=== PATIENT | male | born 1940 | race Caucasian/White ===

== ENCOUNTER → 2016-08-08 | Outpatient (CLI) | payer MEDICARE, OTHER ==
[~2016-08-08] MED LIST: ASPI-110 PO; BENF150C PO; FISH1000 PO; GLIP10TA6 PO; HYDR-3583 PO; LISI40TA PO; NIAC500T18 PO; PIOG30TA4 PO; PRAV20TA2 PO; SITA1TAB2 PO; fentaNYL CITRATE 250 MCG/5 ML AMP ONE
--- NOTE | 2016-08-08 14:10 | RADRPT ---
EXAM DATE/TIME: 08/08/2016 13:53 [facility] COMPARISON: CHEST PA & LAT, October 10, 2013, 10:50. INDICATIONS : Evaluate for pneumonia, pneumothorax or communicable disease. Pre op for cervical spine surgery . MEDICAL HISTORY : None. SURGICAL HISTORY : None. ENCOUNTER: Initial ACUITY: 1 day PAIN SCORE: 0/10 LOCATION: Bilateral chest FINDINGS: PA and lateral views of the chest demonstrate the lungs to be symmetrically aerated without evidence of mass, infiltrate or effusion. The cardiomediastinal contours are unremarkable. Osseous structure s are intact. CONCLUSION: No acute disease. Raciel Sigala MD on August 08, 2016 at 14:09 Board Certified Radiologist. This report was verified electronically.
== END ==
LOC: CPRE 12:18
PROVIDERS: ATTEND Neurological Surgery
DX: Z01.811 Encounter for preprocedural respiratory examination (principal); E11.65 Type 2 diabetes mellitus with hyperglycemia; Z79.01 Long term (current) use of anticoagulants
CPT/HCPCS: 71020; J3010

== ENCOUNTER 2016-08-09 05:42 | Observation (INO) | payer MEDICARE, OTHER ==
[~2016-08-09] VITALS: Ht 172.7 cm; Wt 100.7 kg
[~2016-08-09 05:42] MED LIST changes: -HYDR-3583 PO; -fentaNYL CITRATE 250 MCG/5 ML AMP ONE
[2016-08-09] MEDS ORDERED: METOPROLOL TARTRATE 25 MG TAB PO PRN (06:15)
[2016-08-09] MEDS ORDERED: INSULIN HUMAN REGULAR 1,000 UNITS/10 ML VIAL SQ PRN (06:15)
[2016-08-09 06:28] VITALS: BP 121/52; PULSE 79; RESP 18; TEMP 98.7; O2SAT 96
[2016-08-09] MEDS ORDERED: VANCOMYCIN HCL 1000 MG VIAL ONE (07:47)
[2016-08-09] MEDS ORDERED: MICROFIBRILLAR COLLAGEN HEMOSTAT 70 X 35 MM BANDAGE ONE (07:47)
[2016-08-09] MEDS ORDERED: ceFAZolin 2 GM PREMIX 50 ML ONE (07:48)
[2016-08-09] MEDS ORDERED: GELFOAM SIZE 100 ONE (07:48)
[2016-08-09] MEDS ORDERED: THROMBIN (TOPICAL) 5,000 UNIT VIAL ONE (07:48)
[2016-08-09] MEDS ORDERED: SODIUM CHLOR 0.9% 250 ML INJ 250 ML ONE (07:49)
[2016-08-09] MEDS ORDERED: GENTAMICIN SULFATE 80 MG/2 ML VIAL ONE (07:49)
[2016-08-09] MEDS ORDERED: FAMOTIDINE 20 MG/2 ML VIAL ONE (08:10)
[2016-08-09] MEDS ORDERED: ACETAMINOPHEN 1000 MG/100 ML VIAL IV ONE (08:10)
[2016-08-09] MEDS ORDERED: ARTIFICIAL TEARS OPTH OINT 3.5 APPLIC/3.5 GM TUBO ONE (08:10)
[2016-08-09] MEDS ORDERED: MIDAZOLAM HCL 2 MG/2 ML VIAL ONE (08:10)
[2016-08-09] MEDS ORDERED: fentaNYL CITRATE 250 MCG/5 ML AMP ONE (08:11)
[2016-08-09] MEDS ORDERED: SODIUM CHLORID 0.9% 500 ML IV SCH (08:30)
[2016-08-09] MEDS ORDERED: LACTATED RINGER'S 1000 ML IV SCH (08:30)
[2016-08-09] MEDS ORDERED: LACTATED RINGER'S 1000 ML INJ 2,000 ML IV ONE (12:18)
[2016-08-09] MEDS ORDERED: PHENYLEPH/NS 1000 MCG/10 ML SYR IV ONE (12:18)
[2016-08-09] MEDS ORDERED: SODIUM CHLOR 0.9% 250 ML INJ 250 ML IV ONE (12:18)
[2016-08-09] MEDS ORDERED: PROPOFOL 200 MG/20 ML AMP IV ONE (12:18)
[2016-08-09] MEDS ORDERED: ONDANSETRON HCL 4 MG/2 ML VIAL IV PUSH ONE (12:18)
[2016-08-09] MEDS ORDERED: NS + KCL 20 MEQ INJ 1,000 ML ONE (14:14)
[2016-08-09] MEDS ORDERED: BISACODYL 10 MG SUPP PR PRN (14:15)
[2016-08-09] MEDS ORDERED: ONDANSETRON HCL 4 MG/2 ML VIAL IV PRN (14:15)
[2016-08-09] MEDS ORDERED: MORPHINE SULFATE 4 MG/ML INJ IV PUSH PRN ×2 (14:15)
[2016-08-09] MEDS ORDERED: SODIUM CHLORIDE 0.9% FLUSH 5 ML FLUSH IVF PRN (14:15)
[2016-08-09] MEDS ORDERED: ACETAMINOPHEN/HYDROcodone 325 MG/10 MG TAB PO PRN ×2 (14:15)
[2016-08-09] MEDS ORDERED: DO NOT ADM ANY ANTICOAGULANT DRUGS XX PRN (14:15)
[2016-08-09] MEDS ORDERED: ACETAMINOPHEN 325 MG TAB PO PRN (14:15)
[2016-08-09] MEDS ORDERED: CYCLOBENZAPRINE HCL 10 MG TAB PO PRN (14:15)
[2016-08-09] MEDS ORDERED: DEXTROSE 50% IN WATER 50 ML VIAL(D50) IV PUSH PRN (14:15)
[2016-08-09] MEDS ORDERED: GLUCAGON 1 MG/ML VIAL OTHER PRN (14:15)
[2016-08-09] MEDS ORDERED: MENTHOL LOZENGE SUCK-ON PRN (14:15)
--- NOTE | 2016-08-09 14:54 | RADRPT ---
EXAM DATE/TIME: 08/09/2016 08:46 [facility] COMPARISON: No previous studies available for comparison. INDICATIONS : Fusion C4 to C7 with screw and plate placement., MEDICAL HISTORY : None. SURGICAL HISTORY : None. ENCOUNTER: Initial ACUITY: 1 day PAIN SCORE: Non-responsive. LOCATION: Cervical spine. FINDINGS: 2 crosstable views of the cervical spine were obtained as well as an AP view. This demonstrate that t he patient is status post anterior cervical fusion at the C4-C7 level. Bone grafting material and mar kers are noted in the interspaces. The alignment appears anatomic. There is poor bony detail. A surgi palmer drain is noted on the AP view. CONCLUSION: Status post anterior cervical fusion. Raciel Sigala MD on August 09, 2016 at 14:51 Board Certified Radiologist. This report was verified electronically.
[2016-08-09] MEDS: NS + KCL 20 MEQ INJ 1,000 ML IV SCH (14:56)
[2016-08-09] MEDS: DEXAMETHASONE SOD PHOS 4 MG/ML VIAL IV SCH ×2 (15:02→23:23)
[2016-08-09] MEDS: INSULIN ASPART SUPPLEMENTAL SCALE SQ SCH ×2 (16:00→23:26)
[2016-08-09] MEDS: ceFAZolin 2 GM PREMIX 50 ML IV SCH (16:10)
[2016-08-09 20:48] VITALS: BP 125/64; PULSE 100; RESP 18; TEMP 97.3; O2SAT 94
[2016-08-09] MEDS ORDERED: PRAVASTATIN SOD 20 MG TAB PO SCH (21:00)
[2016-08-09] MEDS: SODIUM CHLORIDE 0.9% FLUSH 5 ML FLUSH IVF SCH (23:23)
[2016-08-09] MEDS: DOCUSATE SODIUM 100 MG CAP PO SCH (23:25)
[2016-08-10 00:22] VITALS: BP 117/62; PULSE 101; RESP 22; TEMP 98.1; O2SAT 93
[2016-08-10] MEDS: ceFAZolin 2 GM PREMIX 50 ML IV SCH ×2 (01:05→09:10)
[2016-08-10] MEDS: DEXAMETHASONE SOD PHOS 4 MG/ML VIAL IV SCH ×2 (03:22→08:27)
[2016-08-10] MEDS: NS + KCL 20 MEQ INJ 1,000 ML IV SCH (03:23)
[2016-08-10 05:21] VITALS: BP 124/74; PULSE 109; RESP 24; TEMP 98.3; O2SAT 92
[2016-08-10] MEDS: INSULIN ASPART SUPPLEMENTAL SCALE SQ SCH ×2 (06:04→11:00)
[2016-08-10 08:00] VITALS: BP 134/64; PULSE 90; RESP 18; TEMP 98; O2SAT 92
[2016-08-10] MEDS: SODIUM CHLORIDE 0.9% FLUSH 5 ML FLUSH IVF SCH (08:29)
[2016-08-10] MEDS ORDERED: HYDR-3583 PO (08:41)
[2016-08-10] MEDS ORDERED: BENFOTIAMINE PO SCH ×2 (09:00)
[2016-08-10] MEDS ORDERED: PANTOPRAZOLE SOD 40 MG DELAYED RELEASE TAB PO SCH (09:00)
[2016-08-10] MEDS ORDERED: NIACINAMIDE PO SCH (09:00)
[2016-08-10] MEDS ORDERED: NIACINAMIDE 500 MG PO SCH (09:00)
[2016-08-10] MEDS ORDERED: glipiZIDE 10 MG TAB PO SCH (09:00)
[2016-08-10] MEDS ORDERED: PIOGLITAZONE HCL 30 MG TAB PO SCH (09:00)
[2016-08-10] MEDS ORDERED: LISINOPRIL 20 MG TAB PO SCH (09:00)
[2016-08-10] MEDS ORDERED: OMEGA PO SCH (09:00)
[2016-08-10] MEDS: DOCUSATE SODIUM 100 MG CAP PO SCH (09:11)
--- NOTE | 2016-08-10 09:24 | HHI.DCPOC ---
Discharge Care Plan Diagnosis: (1) Status post cervical arthrodesis Goals to Promote Your Health * To prevent worsening of your condition and complications * To maintain your health at the optimal level Directions to Meet Your Goals Take your medications as prescribed Follow your dietary instruction Follow activity as directed Keep your appointments as scheduled Take your immunizations and boosters as scheduled If your symptoms worsen call your PCP, if no PCP go to Urgent Care Center or Emergency Room Smoking is Dangerous to Your Health. Avoid second hand smoke Call the 24-hour hour crisis hotline for domestic abuse at Liseth Lopez Aug 10, 2016 09:24
--- NOTE | 2016-08-10 09:25 | HHI.DS ---
Discharge Summary Admission Date Aug 09, 2016 at 14:05 Discharge Date: Aug 10, 2016 Admitting Diagnosis s/p ACDF (1) Status post cervical arthrodesis ICD Code: Z98.1 Brief History Mr Alex is a 76 year-old male who presented with intractable neck pain and clinical evidence of upper extremity polyradiculopathy. He was found to have significant spondylosis with severe multilevel spinal stenosis. he failed maximum nonsurgical management including multiple modalities of conservative treatment as well as pain management interventions by an interventional pain specialist. A surgical decompression and arthrodesis were indicated. Imaging Last Impressions Cervical Spine X-Ray 08/09/16 0000 Signed Impressions: Service Date/Time: Tuesday, August 09, 2016 08:46 - CONCLUSION: Status post anterior cervical fusion. Raciel Sigala MD PE at Discharge Mr. Alex is alert, awake and oriented to time, place and person. Speech is fluent. His wound is clean and dry. Cranial nerve examination: pupils to be equal, round and reactive to light. Extra-ocular movements are intact. Facial motor are normal and symmetrical. Neck is immobilized by a [place] J collar. Motor: slightly slowness to the left arm, otherwise moved all major muscle groups of upper and lower extremities with good strength. Sensory examination is intact to light touch in both the upper and lower extremities. There is a bilateral plantar flexion response. Duque's negative b/l. Gait: ambulated well without difficulties Hospital Course Mr. Alex underwent C4-5, C5-6, C6-7 anterior cervical discectomy and interbody arthrodesis with PEEK cage bone graft, plates and screws on 08/09/16. His surgery went well without complications. He is doing well postoperatively. He reports significant improvement of his left upper extremity radiculopathy. He denies chest pain, difficulty breathing, vomiting, headaches. He is ambulating well without difficulties. His ANDREW drain removed. He is ready to go home. Wound care, activity restrictions, and signs/symptoms to watch for were discussed. Pt Condition on Discharge: Stable Discharge Disposition: Discharge Home Discharge Instructions DIET: Follow Instructions for: Heart Healthy Diet ADDITIONAL Diet Instructions: soft diet and advance as tolerated ACTIVITIES You can perform: Weight Bearing As Giselle ADDITIONAL Activity Instructio: Avoid strenuous activities, heavy lifting, bending, twisting, overhead activities, pushing pulling or any other activities that may place stress on the spine. Wear cervical collar at all times, may remove when eating. Avoid falls, use assistant floor covering printer or assistive devices as needed when ambulating. New Medications: Hydrocodone-Acetaminophen (Hydrocodone-Acetaminophen) 10-325 mg Tab 1 TAB PO Q8HR PRN PAIN SCALE 1 TO 5 #90 Ref 0 TAB Continued Medications: Aspirin DR (Aspirin 81) 81 Mg Tabdr 81 MG PO DAILY Ref 0 TAB Benfotiamine (Benfotiamine) 150 Mg Cap 1 CAP PO DAILY Glipizide (Glipizide) 10 Mg Tab 10 MG PO DAILY Take 30 minutes before a meal Blood Sugar Management #30 Ref 0 TAB Lisinopril (Lisinopril) 40 Mg Tab 40 MG PO DAILY Blood Pressure Management #30 Ref 0 TAB Niacinamide (Niacin) 500 Mg Tab 1 TAB PO DAILY Stokes-3 Fatty Acids (Fish Oil) 1,000 Mg Cap 3 CAP PO DAILY Pioglitazone (Pioglitazone) 30 Mg Tab 30 MG PO DAILY Blood Sugar Management #30 Ref 0 TAB Pravastatin (Pravastatin) 20 Mg Tab 20 MG PO DAILY Cholesterol Management #30 Ref 0 TAB Sitagliptin (Januvia) 100 Mg Tab 100 MG PO DAILY Blood Sugar Management #30 Ref 0 TAB Liseth Lopez Aug 10, 2016 09:25
[2016-08-10 10:15] VITALS: O2SAT 98
--- NOTE | 2016-08-10 14:04 | PD.OP ---
Operative Report Date of Surgery: Aug 09, 2016 Preoperative Diagnosis: Cervical spinal stenosis Postoperative Diagnosis: Cervical spinal stenosis Procedure: C4-5, C5-6, C6-7 anterior cervical discectomy, interbody arthrodesis using peek cage filled with autologous bone graft, C4-5 C5-6, C6-7 instrumented fixation using simplicity plate and screws Anesthesia: general Surgeon: Jose Lees Gas Technician(s): Lazara Mejia Operation and Findings: INDICATIONS FOR THE PROCEDURE Mr Alex is a 76 year-old male who presented with intractable neck pain and clinical evidence of upper extremity poliradiculopathy. he was found to have significant spndylosis with severe multilevel spinal stenosis. he failed maximum nonsurgical management including multiple modalities of conservative treatment as well as pain management interventions by an interventional pain specialist. A surgical decompression and arthrodhesis were indicated. The [id number] details of the procedure, indications, alternatives, risks and potential complications were fully discussed with the patient. The patient fully understood. All The questions were answered. No guarantees were given. The patient voiced requesting the procedure and provided informed consents. The patient was offered the alternative of delaying the procedure and continuing with nonsurgical management. DETAILS OF THE SURGICAL PROCEDURE After the induction of general anesthesia, endotracheal intubation was performed. A Savage catheter, bilateral SWETHA hose, and sequential compression devices were placed and kept throughout the procedure. Placement of electrodes for neurophysiological monitoring of the somatosensorial evoked potentials. motor evoked potentials, and EMG as well as laryngeal nerve monitoring was achieved. The patient was positioned supine on a Yony table with the head over a gel doughnut. All pressure points were carefully padded with eggcrate mattress. The eyes were tapped shut after ointment was applied by the anesthesiologist to prevent corneal abrasion. A Madonna hugger was placed over the exposed lower body to maintain control of the core body temperature. The electrophysiological team placed the needles and electrodes in their proper location and baseline SSEP's and motor evoked potentials were registered prior and after positioning and endotracheal intubation. The anterior cervical region was prepped and draped in the usual sterile fashion. A localizing x-ray was performed with a C-arm. The surgical procedure was performed in several steps as follow: SURGICAL APPROACH A skin incision was made along the medial cervical crease with a #10 blade. The dissection was carried out through the platysma exposing the sternocleidomastoid muscle. The cervical spine was approached following the fascial layers of the neck just medial to the anterior border of the sternocleidomastoid and carotid sheath by a combination of sharp and dull dissection. The omohyoid muscle was identified and carefully dissected laterally and the deep cervical fascia was carefully opened. The longus colli muscles were retracted to each side of the midline. A marker was placed at the disc space C5-6 and a cross-table lateral x-ray performed with a C-arm. SURGICAL DECOMPRESSION In order to decompress the anterior surface of the spinal cord it was necessary to preform a microsurgical resection of the disk at C4-5 and C5-6. At this point in the procedure the operating microscope was draped in the usual sterile fashion and brought to the field. The rest of the surgical procedure was performed using microdissection technique with the exception of the closure. Under the operative microscopic, a self-retaining retractor was placed underneath the longus colli muscle. Anterior osteophite spurs werte carefully removed with the Leksell. The annulus at C4-5, C5-6, and C6-7 were incised with a #15 blade and microdiscectomy was then carefully carried out using angled curets and pituitary forceps. There were osteophitic/disk complexes mass effect and compression of the dural sac and nerve roots. The posterior longitudinal ligament was then elevated with an angled curet and incised with a 15 bladed knife. A careful resection of the posterior longitudinal ligament was carried out using a thin footplate 2 mm Kerrison. A nerve hook was used to assess the epidural space behing the vertebral bodies C5 and C6 in search for residual disk fragments. The margins of the posterior endplates at C4-5, C5-6, and C6-7 were carefully drilled and undercut with a TPS drill under high magnification. The decompression was then carried out laterally, and a bilateral foraminotomy was performed with a 2mm thin foot Kerrison. Then the vertebral bodies above and below the disk space were undercut using a 2 mm thin foot Kerrison. The epidural space was the systematically assessed with a nerve hook in search for disk fragments or scar tissue. An excellent decompression was achieved in both , the dural sac and bilateral exiting nerve roots. The incision was then irrigated with a large amount of antibiotic solution INTERBODY ARTHRODHESIS In order to avoid collapse of the disk space which would result in bilateral foraminal stenosis, and to increase the chances of a successful fusion, it was necessary to place an interbody cage filled with autologous bone. At this point of the procedure, the superior and inferior endplates were then evenly decorticated with a TPS drill. The use of a drill in combination with a curette allowed me to systematically remove the cartilaginous endplates, exposing healthy bone for the interbody arthrodesis. Fourteen millimeters distraction pins were then placed at the vertebral bodies adjacent to the disk space, and gentle distraction was applied. The size of the interbody cage was then assessed using different size spacers, and a rasp was used to ensure no residual cartilage. A PEEK cage of the appropriate size was selected, and the interbody arthrodesis was then preformed by carefully impacting a PEEK cage filled with autologous bone graft to the disc spaces C4-5, C5-6, and C6-7. An excellent position of the cage was achieved. This was was confirmed anatomically by feeling the space posterior to the implant and distance to the anterior surface of the dural sac. Radiological confirmation of the position was performed with a cross lateral xray performed with the C-arm. INTERNAL INSTRUMENTAL FIXATION Once that the interbody device was in an appropriate position, it was necessary to stabilize the spine with anterior instrumentation. Anterior instrumentation has demonstrated to increase the rate of fusion, acelerate the patient's recovery, and decrease the rate of failed interbody grafts. At this point of the procedure, the distance between the vertebral bodies was carefully measures, and a Simplicity plate was brought to the field and presented in front of the vertebral bodies C4 C5, C6, and C7. Refrigeration Manager holes were then drilled using the TPS drill, and the plate was then secured to the spine using self-drilling, self-tapping screws. Initially, the inferior right screw was inserted, followed by placement of the contralateral upper screw. The remanding screws were sequentially placed in a contra-lateral fashion. A proper purchase was achieved with all screws and the position of the cage, plate and screws, and alignment of the spine was assessed anatomically by direct visualization, and radiologically by performing a cross lateral xray of the cervical spine with the C-arm. CLOSURE The incision was irrigated with several liters of antibiotic solution. Hemostasis was achieved with a bipolar. The screws were locked to prevent backing out. A 7 mm Yony-Lan drain was left in the prevertebral space and externalized through a separate stab incision. The incision was then closed in layers. 3-0 Vicryl with interrupted sutures was used to close the platysma and subcutaneous tissue. The skin was closed with 4-0 running subcuticular Vicryl and glue was applied to the skin. The drain was secured with a 3-0 nylon. At the end of the procedure the sponge, needle and instrument counts were all correct. The estimated blood loss was less than 100 cc. No blood transfusion was given. No intraoperative complications occurred. The patient received prophylactic antibiotics. The patient was then extubated and transferred to the recovery room in stable condition. Jose Lees MD Aug 10, 2016 14:04
== END 2016-08-10 12:35 | disposition home or self-care (01) ==
LOC: HSDC 05:42 → HSDI 14:05 → N05A 19:12
PROVIDERS: ADMIT Neurological Surgery; ATTEND Neurological Surgery
DX: M48.02 Spinal stenosis, cervical region (principal); M54.10 Radiculopathy, site unspecified; M47.9 Spondylosis, unspecified; E11.9 Type 2 diabetes mellitus without complications
CPT/HCPCS: 00600; 20936; 22551; 22552; 22853; 72040; 76000; 82948; 94150; 97162; C1713; G0378; G8987; G8988; J0131; J0690; J1100; J1580; J1815; J2250; J2370; J2405; J3010; J3370; J3480; J7050; J7120; L0150; L0172

== ENCOUNTER 2018-02-20 05:12 | Observation (INO) ==
--- NOTE | 2018-02-16 13:23 | MH ---
cc: Chica Garcia MD DATE OF ADMISSION: 02/20/2018 REASON FOR ADMISSION: Unstable left total knee, now for revision total knee arthroplasty. HISTORY OF PRESENT ILLNESS: This pleasant 77-year-old male is being admitted today for revision left total knee arthroplasty due to instability. The knee was put in four years ago. PAST MEDICAL HISTORY: The patient has a history of hypertension, type 2 diabetes and currently takes Lisinopril, glipizide, pravastatin, pioglitazone, and Januvia. PAST SURGICAL HISTORY: Left total knee four years ago at [facility]. REVIEW OF SYSTEMS: Noncontributory. FAMILY HISTORY: Noncontributory. SOCIAL HISTORY: Does not smoke or drink. ALLERGIES: THE PATIENT IS ALLERGIC TO METFORMIN. PHYSICAL EXAMINATION: GENERAL: We find a 7-year-old male, well-developed, well-nourished, alert and oriented x 3, complaining of pain and instability of left knee. VITAL SIGNS: Blood pressure 136/84, pulse 77 and regular, respirations 18, temperature 98.4, pulse oximetry 97% on room air. HEENT: Eyes PERRLA, EOMI. Ears, nose, mouth clear. NECK: Supple. LUNGS: Clear. HEART: Regular rate. ABDOMEN: Soft, positive bowel sounds, nontender. EXTREMITIES: Reveals left knee to have 2+ varus/valgus instability with some swelling. He is neurovascularly intact to his toes. IMPRESSION: Unstable left total knee arthroplasty. PLAN: Admission for revision total knee arthroplasty today. The patient was given prescription for postoperative pain and anticoagulation control in the office. Plans on going home after surgical stay in the hospital. JChristie Garcia MD JRR/rh , 10:08 AM , 10:13 AM
[2018-02-20] MEDS ORDERED: Chlorhexidine Gluconate 2% 1 Pack (2 Cloths) TOPICAL SCH (05:45)
[2018-02-20] MEDS ORDERED: Metoprolol Tartrate 25 MG Tablet PO SCH (05:45)
[2018-02-20] MEDS ORDERED: Chlorhexidine 4% Topical 120 APPLIC/120 ML Bottle TOPICAL SCH (05:45)
[2018-02-20] MEDS ORDERED: SODIUM CHLOR 0.9% IV.SIG SCH (06:00)
[2018-02-20] MEDS ORDERED: Vancomycin Inj 1,000 MG in Sodium Chlor 0.9% Inj 250 ML IV.SIG SCH (06:00)
[2018-02-20] MEDS ORDERED: ceFAZolin 2 GM Premix Inj 2 GM/100 ML BAG IV.SIG SCH (06:00)
[2018-02-20] MEDS ORDERED: Sodium Chlor 0.9% Inj 500 ML IV.SIG SCH (06:00)
[2018-02-20] MEDS ORDERED: TRANEXAMIC ACID IV.SIG SCH (06:00)
[2018-02-20] MEDS ORDERED: Bupivacaine/Dextrose 0.75% Inj 2 ML Ampul ONE (06:25)
[2018-02-20] MEDS ORDERED: Dexmedetomidine Inj 200 MCG/2 ML Vial ONE (06:25)
[2018-02-20] MEDS ORDERED: Bupivacaine PF 0.5% Inj 30 ML Vial ONE (06:49)
[2018-02-20] MEDS ORDERED: Propofol Inj 500 MG/50 ML Vial ONE ×2 (07:18)
[2018-02-20] MEDS ORDERED: Post-op Orders (for Pharmacy) OTHER STA (07:35)
[2018-02-20] MEDS ORDERED: Morphine Inj 4 MG/ML Vial IV.PUSH PRN (07:35)
[2018-02-20] MEDS ORDERED: Bisacodyl 10 MG Supp RECTAL PRN (07:35)
--- NOTE | 2018-02-20 07:42 | P.DCO ---
- Physical Therapy Order: Evaluate and treat, Improve ambulation, Strength and gait training - Home Health Nursing Order: Nursing assessment with vital signs - Case Management Consult Yes - Certification I have seen patient Alexander Alex on 02/20/18. My clinical findings support the need for the requested home health care services because: High risk of falls I certify that my clinical findings support that this patient is homebound because: Post-op weakness, Unsteady gait/balance
[2018-02-20] MEDS ORDERED: OMEGA DHA EPA FISH OIL PO SCH (09:00)
--- NOTE | 2018-02-20 10:29 | P.BOP ---
- Preoperative Diagnosis (1) Failed total left knee replacement - Postoperative Diagnosis (1) Status post revision of total replacement of left knee Date of procedure: 02/20/18 Procedure: Revision Left total knee Arthrpolasty Implants: see implant record Anesthesia: spinal Surgeon: Chica Garcia MD Teacher Learning Disabled: Racquel Sweet Estimated blood loss (mL): 100 Tourniquet time (min): 45 (300 mmHg) Urine output (mL): 0 (no mccarty) Pathology: other (left knee fluid) Condition: stable Disposition: PACU
--- NOTE | 2018-02-20 10:30 | MP ---
cc: Chica Garcia MD DATE OF OPERATION: 02/20/2018 PREOPERATIVE DIAGNOSIS: Failed left total knee arthroplasty. POSTOPERATIVE DIAGNOSIS: Failed left total knee arthroplasty. SURGERY PERFORMED: Revision left total knee arthroplasty with liner exchange. It was a Kelly Sigma tibial insert exchanged from a size 6 to a size 10 mm thick, number size 4. SURGEON: Chica Garcia M.D. CONCAVER: MARISELA Anderson. ANESTHESIA: General intubation and block. DETAILS OF PROCEDURE: The patient was brought to the operating room, placed on the operating table in supine position. After successful induction of general anesthesia, the patient's left knee, thigh, and leg were prepped and draped in usual manner. Tourniquet inflated on the left upper thigh and set to 300 mmHg pressure after exsanguination of the left lower extremity. A midline incision was then made extending from 4 inches proximal to 4 inches distal of the patella. Incision carried down through subcutaneous tissue through a medial parapatellar approach through the deep fascia to expose the knee joint. Clear serous fluid removed and sent to the lab for stat Gram stain, culture, and sensitivity. Gram stain revealing no white cells and no bacteria seen. The knee was then debrided of scar tissue from the distal femur and proximal tibia and a lateral retinacular release performed, which allowed us to visualize the joint better and also to allow the patella to track in its more neutral tracking position. The knee was then flexed and the tibial insert was found to be unstable and removed. The wound irrigated copiously with antibiotic solution at this point. Next, trial inserts were used of the Kelly Sigma components and found to track best with a size 4 x 10 mm thick constrained insert. This was selected and the actual implant impacted into place and found to be stable, full range of motion appreciated with absolutely no instability. Tourniquet deflated at this point, tourniquet time being 45 minutes at 300 mmHg pressure. Meticulous hemostasis achieved. Attempts were made also to dislodge the femur, the tibia, and the patella with no success, indicating that they were cemented very well and stable. The deep fascia was approximated with running #2 Quill. The lateral retinacular release was repaired using interrupted #1 Vicryl. The subcutaneous tissue approximated in layers using running 2-0 and 3-0 Quill and skin was covered with Prineo dressing and knee immobilizer. DRAIN: No drain utilized. ESTIMATED BLOOD LOSS: 100 mL. TOTAL TOURNIQUET TIME: 45 minutes. The patient tolerated the procedure well and left the operating room in stable condition. MARISELA Anderson, was present during the entire procedure to include patient positioning and the procedure. The medical necessity of a nurse practitioner rn first assist was indicated in this case due to the surgical complexity of the case itself. During the surgical case, the cytopathology technologist was working the back table while my assistant teaching professor, MARISELA, was directly assisting me. J. Adolfo Garcia MD JRR/rs , 10:09 AM , 10:19 AM
--- NOTE | 2018-02-20 11:11 | XR ---
EXAM DATE: 02/20/2018 11:02 AM EDT AGE/SEX: 77 years / Male INDICATIONS: Post op left knee surgery. CLINICAL DATA: This is the patient's initial encounter. Patient reports that signs and symptoms have been present for 1 day and indicates a pain score of 0/10. MEDICAL/SURGICAL HISTORY: None. None. COMPARISON: POI, XR KNEE COMPLETE, LEFT, 07/29/2013. . FINDINGS: Total knee arthroplasty is in satisfactory position. The alignment is anatomic. CONCLUSION: Postsurgical changes as above. Electronically signed by: Daron Feng MD 02/20/2018 11:10 AM EDT
[2018-02-20] MEDS ORDERED: Phenylephrine/NS 1000 MCG/10ML Syringe IV.PUSH ONE (12:00)
[2018-02-20] MEDS: Senna/Docusate Sodium 8.6/50 MG Tablet PO SCH ×2 (13:07→21:29)
[2018-02-20] MEDS: glipiZIDE 10 MG Tablet PO SCH ×2 (13:07→21:29)
[2018-02-20] MEDS: Lisinopril 20 MG Tablet PO SCH (13:08)
[2018-02-20] MEDS: Multivitamin/Minerals Therapeutic Tablet PO SCH ×2 (13:08→21:29)
[2018-02-21 04:31] LABS: Hematocrit 36.6 % (39.0-51.0); Hemoglobin 12.4 gm/dL (13.0-17.0)
--- NOTE | 2018-02-21 11:13 | P.PNOP ---
Subjective Interval history: Pt comfortable with no complaints of pain. Physical Exam Vital signs: Vital Signs 02/20/18 11:15 02/20/18 11:30 02/20/18 12:00 Temperature Pulse Rate 53 L 54 L 67 Respiratory Rate 24 24 22 Blood Pressure 153/67 H 155/66 H 127/85 Pulse Oximetry 100 100 99 02/20/18 13:00 02/20/18 14:00 02/20/18 15:00 Temperature 97.9 F Pulse Rate 64 68 80 Respiratory Rate 22 22 22 Blood Pressure 117/56 L 122/57 L 127/67 Pulse Oximetry 99 98 98 02/20/18 16:00 02/20/18 20:00 02/21/18 00:00 Temperature 97.8 F 98.4 F 98.4 F Pulse Rate 82 110 H 85 Respiratory Rate 18 18 18 Blood Pressure 122/60 127/69 98/55 L Pulse Oximetry 96 95 97 02/21/18 04:00 02/21/18 08:00 Temperature 97.9 F 98.2 F Pulse Rate 71 73 Respiratory Rate 18 18 Blood Pressure 118/58 L 108/63 Pulse Oximetry 94 L 96 Intake & Output 02/20/18 02/21/18 02/21/18 18:59 06:59 18:59 Intake Total 3730.76 / 3730.76 1309 / 1309 Output Total 645 / 645 550 / 550 Balance 3085.76 / 3085.76 759 / 759 Weight 97.522 kg 97.6 kg Intake: IV 1930.76 / 1930.76 829 / 829 LR 1000 mL Inj 1,000 ML @ 80 371 / 371 629 / 629 mls/hr IV.CONT .[id number] RAE Rx# :[id number] LR 1000 mL Inj 1,000 ML @ 30 1000 / 1000 mls/hr IV.SIG .Q24H R[facility] Rx#: [id number] Cyklokapron Inj 976 MG In NS 109.76 / 109.76 Inj 100 ML @ 200 mls/hr IV.SIG ONCE RAE Rx#:[id number] Vancomycin Inj 1,000 MG In NS 250 / 250 Inj 250 ML @ 250 mls/hr IV.SIG DIP FILLER RAE Rx#:[id number] Ancef 2 GM Premix Inj 2 gm In 100 / 100 100 ml @ 200 mls/hr IV.SIG ONCE RAE Rx#:[id number] Ancef Inj 1,000 MG In NS Inj 100 / 100 200 / 200 100 ML @ 200 mls/hr IV.SIG Q6H R[facility] Rx#:[id number] Oral 600 / 600 480 / 480 Anesthesia Amount 1200 / 1200 Output: Urine 545 / 545 550 / 550 Estimated Blood Loss 100 / 100 Other: # Incontinent Voids 1 Date of Last Bowel Movement 02/19/18 - Constitutional no acute distress Results - Labs CBC & Chem 7: 02/21/18 03:53 Laboratory Results - last 24 hr 02/21/18 03:53 Hgb 12.4 L Hct 36.6 L Microbiology 02/20/18 08:30 Other Fungal Smear - Final No fungal elements seen 02/20/18 08:30 Wound - Knee Gram Stain - Final - Imaging Impressions Knee X-Ray 02/20/18 07:35 CONCLUSION: Postsurgical changes as above. Assessment and Plan - Problem List (1) Status post revision of total replacement of left knee Code(s): Z96.652 - Presence of left artificial knee joint Status: Acute - Attending Attestation Attending Attestation: Doing Well first day Post op. Home today with HHC and PT.
[2018-02-21] MEDS: glipiZIDE 10 MG Tablet PO SCH (11:18)
[2018-02-21] MEDS: Lisinopril 20 MG Tablet PO SCH (11:19)
[2018-02-21] MEDS: Senna/Docusate Sodium 8.6/50 MG Tablet PO SCH (11:19)
[2018-02-21] MEDS: Multivitamin/Minerals Therapeutic Tablet PO SCH (11:19)
[2018-02-21 12:48] VITALS: BP 134/58; PULSE 90; RESP 17; TEMP 97.5; O2SAT 94
== END 2018-02-21 12:49 | disposition home health service (06) ==
LOC: INTOOBSV 05:12 → HSDI 05:12 → N06 15:51
PROVIDERS: ADMIT Surgery; ATTEND Surgery